=== PATIENT | male | born 2000 | race Caucasian/White ===

== ENCOUNTER 2019-01-24 23:26 | Emergency (ER) | payer SELFPAY ==
--- NOTE | 2019-01-24 23:49 | PDOC ---
Attending Attestation - Resident Resident Name: Patrice Jones - ED Attending Attestation I have performed the following: I have examined & evaluated the patient, The case was reviewed & discussed with the resident, I agree w/resident's findings & plan, Exceptions are as noted - Medical Decision Making 01/25/19 00:26 IMP Dental pain/suspected apical abscess w percussion sensitivity RX pen VK/percocoet plan follow up with dentist <Salma Irizarry - Last Filed: 01/25/19 00:26> - HPI HPI: 01/25/19 00:31 The patient is a 18 year old male, with no significant past medical history, who presents to the emergency department with, left mandibular molar toothache with associated pain upon closing her mouth. He denies any recent fevers, chills, headache or dizziness. He denies any recent nausea, vomit, diarrhea or constipation. He denies any recent chest pain or shortness of breath. He denies any recent dysuria, frequency, urgency or hematuria. Allergies: NKDA Social History: Nonsmoker. Denies EtOH use and recreational drug use. - Physicial Exam PE: 01/25/19 00:31 GENERAL: Well-appearing, well-nourished. No apparent distress. 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 Negative buckle vestibule swelling. Negative submandibular and sublingual swelling. CARDIOVASCULAR: Normal S1, S2. Regular rate and rhythm. PULMONARY: Clear to auscultation bilaterally. ABDOMEN: Soft, non-distended, non-tender. EXTREMITIES: Normal ROM in all four extremities. No gross deformities. SKIN: Warm, dry. No rash NEUROLOGICAL: No focal neurological deficits. <Nicole Kilgore - Last Filed: 01/25/19 00:31> Attestations - Attestations 01/25/19 00:31 Documentation prepared by Nicole Kilgore, acting as rn medical surgical for Salma Irizarry MD. <Nicole Kilgore - Last Filed: 01/25/19 00:31>
[2019-01-24] MEDS ORDERED: ACETAMINOPHEN 325 MG TABLET (FP) PO ONE (23:58)
--- NOTE | 2019-01-24 23:58 | PDOC ---
History of Present Illness - General Stated Complaint: PAIN IN THE MOUTH Time Seen by Provider: 01/24/19 23:46 - History of Present Illness Initial Comments: 01/25/19 00:08 The patient is a 18 year old male with no significant PMH who presents for evaluation of dental pain. The patient reports a 2 day history of worsening pain to his 19th tooth worse with chewing prompting his presentation to the ED for further evaluation. He states that he has been using tylenol and motrin frequently with minimal improvement in his symptoms. He has had multiple crowns and dental caries in the past and is currently seeing an office helper for dental work as well. He otherwise denies fevers, chills, SOB, chest pain, nausea, vomiting, abdominal pain, or changes with urination or bowel movements. Past History - Past Medical History Allergies/Adverse Reactions: Allergies Allergy/AdvReac Type Severity Reaction Status Date / Time No Known Allergies Allergy Verified 01/25/19 00:08 Home Medications: Ambulatory Orders Oxycodone HCl/Acetaminophen [Percocet 5-325 mg Tablet] 1 tab PO BID #10 tablet MDD 2 tabs 01/25/19 Penicillin V Potassium [Pen Vee K -] 500 mg PO TID #21 tablet 01/25/19 Review of Systems - Review of Systems Comments:: 01/25/19 00:11 Constitutional: No fevers, chills, fatigue, malaise HEENT: Dental Pain. No Rhinorrhea, nasal congestion, visual changes Cardiovascular: No chest pain, syncope, palpitations, lightheadedness Respiratory: No Cough, SOB, Hemoptysis, Gastrointestinal: No Abdominal pain, Nausea, Vomiting, Constipation, Diarrhea, Melena Genitourinary: No Dysuria, Frequency, Urgency, Hesitancy, Hematuria, Flank pain Musculoskeletal: No Myalgia, arthralgia Skin: No rashes, itching, bruising, pallor Neurologic: No Headache, Dizziness, Numbness, Weakness, or Tingling Psychiatric: No Hallucinations. No SI or HI *Physical Exam - Physical Exam Comments: 01/25/19 00:11 General Appearance: Nourished. No Apparent Distress HEENT: Multiple Fillings noted on exam. Pain to palpation of the 19th tooth. Dental [place] in place. No area of fluctulence or erythema or discharge. No Pharyngeal Erythema, Tonsillar Exudate, Tonsillar Erythema Neck: No Cervical Lymphadenopathy Respiratory/Chest: Lungs Clear, Normal Breath Sounds. No Crackles, Rales, Rhonchi, Wheezing Cardiovascular: Regular Rhythm, Regular Rate. No Murmur, Gallops, Rubs Gastrointestinal/Abdominal: Normal Bowel Sounds, Soft. No Guarding, Rebound, Tenderness Musculoskeletal: No CVA Tenderness Extremity: Normal Capillary Refill Integumentary: Normal Color, Dry, Warm Neurologic: Fully Oriented, Alert, Normal Mood/Affect, Normal Response, Medical Decision Making - Medical Decision Making 01/25/19 00:12 The patient is a 18 year old male with no significant PMH who presents for evaluation of dental pain. Given the patient's history and physical exam, it is likely the patient's symptoms are due to a developing dental caries beneath the crown on tooth 19. We will treat the patient with percocet here in the ED and are comfortable discharging the patient home with dental follow up on penicillin and percocet. We discussed the plan and return precautions with the patient who voiced understanding and is agreeable with the plan. *DC/Admit/Observation/Transfer Diagnosis at time of Disposition: Pain, dental - Discharge Dispostion Disposition: HOME Condition at time of disposition: Stable - Prescriptions Prescriptions: Oxycodone HCl/Acetaminophen [Percocet 5-325 mg Tablet] 1 tab PO BID #10 tablet MDD 2 tabs Penicillin V Potassium [Pen Vee K -] 500 mg PO TID #21 tablet - Referrals - Patient Instructions Printed Discharge Instructions: DI for Dental Pain Additional Instructions: 1) Please follow-up with your primary care doctor in the next 2-3 days. Please call tomorrow to schedule a follow up appointment. If you cannot follow up with your doctor within 1 week please return to the Emergency Department for any urgent issues. 2) You are to follow up with your dentist within 2-3 days to have your tooth evaluated and to discuss further management of your symptoms. 3) If you have any worsening of symptoms or any other concerns please return to the ER immediately. Return if worsening symptoms including fevers, headache, vomiting, visual or hearing disturbances, abdominal pain, chest pain, shortness of breath, syncope, dehydration, inability to take things by mouth/vomiting, altered mental status, or worsening concerning symptoms. 4) Please continue taking your home medications as directed. Your medications on discharge include Percocet that you may take for severe pain and Antibiotics that you are to take three times a day for 5 days. Please continue to use tylenol and motrin as well for less severe pain. 1) Justo el seguimiento con manrique mdico de atencin primaria en los prximos 2 o 3 box. Por favor llame maana para programar alaina tonya de seguimiento. Si no puede hacer un seguimiento con manrique mdico dentro de 1 semana, vuelva al [facility] para cualquier problema urgente. 2) Debe realizar un seguimiento con manrique dentista en un plazo de 2 a 3 box para que le evalen el diente y analicen el manejo de elina sntomas. 3) Si tiene algn empeoramiento de los sntomas o alguna otra inquietud, vuelva a la ER de inmediato. Regrese si los sntomas empeoran, incluyendo fiebre, dolor de fuentes, vmitos, trastornos visuales o auditivos, dolor abdominal, dolor de pecho, falta de aliento, sncope, deshidratacin, incapacidad para liss cosas por la boca / vmitos, estado mental alterado o empeoramiento de los sntomas. 4) Por favor contine tomando elina medicamentos caseros segn lo indicado. Elina medicamentos para el song incluyen Percocet que puede liss para el dolor intenso y antibiticos que debe liss laura veces al da jake 5 box. Por favor contine usando tylenol y motrin tambin para el dolor menos [place]. Print Language: MALTESE - Post Discharge Activity
[2019-01-25] MEDS ORDERED: ACETAMINOPHEN 325 MG TABLET (FP) ONE (00:17)
== END 2019-01-25 00:38 | disposition home or self-care (01) ==
LOC: JER 23:26
DX: K08.89 Other specified disorders of teeth and supporting structures (principal)
CPT/HCPCS: 99281-25